=== PATIENT | male | born 1970 | race Caucasian/White ===

== ENCOUNTER 2019-02-01 14:12 | Emergency (ER) | payer OTHER ==
[~2019-02-01] VITALS: Ht 167.6 cm; Wt 96.6 kg
[2019-02-01 18:23] VITALS: BP 131/74
== END 2019-02-01 18:23 | disposition home or self-care (01) ==
LOC: ED 14:12
DX: J02.9 Acute pharyngitis, unspecified (principal); I10 Essential (primary) hypertension; E11.9 Type 2 diabetes mellitus without complications; E78.00 Pure hypercholesterolemia, unspecified
CPT/HCPCS: 86308

== ENCOUNTER 2019-08-03 11:50 | Emergency (ER) | payer OTHER ==
[~2019-08-03] VITALS: Ht 152.4 cm; Wt 96.6 kg
[2019-08-03 12:19] VITALS: Ht 152.4 cm; Wt 96.6 kg
[2019-08-03 13:23] VITALS: BP 149/86
== END 2019-08-03 13:21 | disposition home or self-care (01) ==
LOC: ED 11:50
DX: H60.501 Unspecified acute noninfective otitis externa, right ear (principal); I10 Essential (primary) hypertension; E11.9 Type 2 diabetes mellitus without complications; E78.00 Pure hypercholesterolemia, unspecified